=== PATIENT | female | born 1945 | race Caucasian/White ===

== ENCOUNTER 2020-04-11 22:08 | Emergency (ER) | payer MEDICARE, MEDICAID ==
[~2020-04-11] VITALS: Ht 157.5 cm; Wt 57.2 kg
[2020-04-11 22:23] VITALS: BP 146/67
--- NOTE | 2020-04-11 22:28 | Emergency Room Report ---
History of Present Illness General Chief Complaint: Multiple Trauma/Fall Source: Patient Present Illness HPI Disclaimer: Please note that this report is being documented using DRAGON technology. This can lead to erroneous entry secondary to incorrect interpretation by the dictating instrument. HPI: 74-year-old [id number] female presents for evaluation of wrist pain status post fall. Patient was walking down the street and slipped falling forward onto an outstretched right hand approximately 2 hours ago. Noted pain and swelling over the dorsum of the wrist. Denies skin breakdown or laceration. No head injury or loss of conscious or other injury reported. Is able to move all digits and maintains full sensation. Applied ice but did not take any medication prior to arrival. No prior history of injury or trauma to the region. 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 EOMI. Resp: Normal work of breathing Skin: Intact. No abrasions, laceration or rash over the exposed skin MSK: Normal tone and bulk. Moving all extremities. There is moderate edema and palpable deformity over the distal radius and over the dorsum of the wrist. No tenderness over the anatomic snuffbox. Flexion extension of all digits is preserved. Sensation intact over the radial and ulnar aspect of all digits. 2 + radial pulse. Brisk capillary refill. Neuro: Awake and alert. Mentating appropriately Procedures Splinting Splinting : Consent: Verbal Hand-Made Type: plaster Splint: sugar-tong Pre-Proc Neuro Vasc Exam: normal Post-Proc Neuro Vasc Exam: normal Patient Tolerated: Well Complications: None Joint Reduction Joint Reduction : Consent: Emergent Joint Reduction Site: wrist (R) Procedural Sedation: Yes Reduction Attempts: One Pre-Procedure NV Exam: Yes Post-Procedure NV Exam: Yes Post Joint Reduction Film: joint not reduced Patient Tolerated: Well Complications: None Medical Decision Making Diagnostic Impression: Primary Impression: Distal radius fracture, right Qualified Codes: S52.541A - Tomas's fracture of right radius, initial encounter for closed fracture ER Course This 72-year-old female presenting for evaluation of right wrist pain after a fall on outstretched hand 2 hours ago. Concern for fracture, dislocation, contusion, sprain among others. X-rays ordered and are consistent with a anteriorly displaced distal radius fracture, sinus fracture. Hematoma block performed and the patient was given intramuscular and oral pain medications. Fracture was reduced with improved alignment. Placed in sugar tong splint. Neurovascularly intact and started under the procedure. She will require follow -up with orthopedic surgery for possible surgical fixation. She has an HMO insurance plan and will have to follow-up with 1 of their assigned orthopedic surgeons. Copies of her images were included in discharge paperwork. Stable for outpatient follow-up. Instructed to return with new or worsening symptoms. Other X-Ray Diagnostic Results Other X-Ray Diagnostic Results #1: X-Ray ordered: Right wrist # of Views/Limited Vs Complete: 3 View Indication: Pain EP Interpretation: Yes Interpretation: other - Distal radius fracture with anterior displacement consistent with cement fracture. Soft tissue swelling noted Impression: Other - Distal radius fracture and soft tissue swelling Electronically Signed by: Electronically signed by Dr. Tacos Luis Other X-Ray Diagnostic Results #2: X-Ray ordered: Right hand # of Views/Limited Vs Complete: 3 View Indication: Pain EP Interpretation: Yes Interpretation: other - Distal radius fracture, no obvious fracture dislocation in the hand Impression: Other - No obvious fracture or dislocation in the hand, distal radius fracture is seen on wrist x-ray Electronically Signed by: Electronically signed by Dr. Tacos Luis Other X-Ray Diagnostic Results #3: X-Ray ordered: Right wrist post reduction # of Views/Limited Vs Complete: 3 View Indication: Pain EP Interpretation: Yes Interpretation: other - Distal radius fracture with improved alignment Impression: Other - Distal radius fracture with improved alignment Electronically Signed by: Electronically signed by Dr. Tacos Luis Last Vital Signs Date Time Temp Pulse Resp B/P (MAP) Pulse Ox O2 Delivery O2 Flow Rate FiO2 04/11/20 22:23 80 20 Room Air 04/11/20 22:23 146/67 98 04/11/20 22:14 98.4 Disposition: HOME, SELF-CARE Condition: Stable Scripts Hydrocodone Bit/Acetaminophen 5-325* (NORCO 5-325 TABLET*) 1 Each Tablet 1 TAB ORAL Q6H PRN for FOR PAIN, #12 TAB 0 Refills Prov: Tacos Luis MD 04/11/20 Ibuprofen* (MOTRIN*) 600 Mg Tablet 600 MG ORAL Q6H PRN for For Pain, #30 TAB 0 Refills Prov: Tacos Luis MD 04/11/20 Tacos Luis MD Apr 11, 2020 22:28
[2020-04-11] MEDS ORDERED: HYDROcodone/Acetamin 7.5/325 tab ORAL ONE (22:30)
[2020-04-11] MEDS ORDERED: Morphine Sulfate 2mg/ml Inj(IV/IM USE ONLY) IM ONE (23:15)
[2020-04-11] MEDS ORDERED: IBUPROFEN600 M1 ORAL (23:16)
[2020-04-11] MEDS ORDERED: NORCO 5-325 TA1 EAC1 ORAL (23:16)
[2020-04-12 00:20] VITALS: BP 135/71
--- NOTE | 2020-04-12 11:38 | Diagnostic Imaging Report ---
EXAM: X-RAY XRAY Wrist Complete R CLINICAL HISTORY: Wrist pain and fracture. COMPARISON: 04/11/2020 FINDINGS: Total of 4 views of the right wrist were obtained. Images now obtained in cast. Distal radial fracture again noted not significantly changed. Alignment appears anatomic. Surrounding soft tissue is normal. IMPRESSION: DISTAL RADIAL FRACTURE NOW IN CAST. ANATOMIC ALIGNMENT.
--- NOTE | 2020-04-12 11:40 | Diagnostic Imaging Report ---
EXAM: X-RAY XRAY Wrist Complete R CLINICAL HISTORY: Trauma with hand and wrist pain. COMPARISON: None FINDINGS: Total of 3 views of the right wrist were obtained. There is a mildly impacted fracture of the distal radius. The other bony appendages appear intact. Carpal alignment remains anatomic. There is slight ulnar plus variance. Soft tissue swelling noted. IMPRESSION: DISTAL RADIAL FRACTURE WITH MILD IMPACTION.
--- NOTE | 2020-04-12 11:40 | Diagnostic Imaging Report ---
EXAM: X-RAY XRAY Hand Complete R CLINICAL HISTORY: Trauma with hand and wrist pain. COMPARISON: None FINDINGS: Total of 3 views of the right hand were obtained. There is a mildly impacted fracture of the distal radius. Bony appendages of the hand otherwise appear unremarkable. Carpal alignment remains anatomic. There is slight ulnar plus variance. Soft tissue swelling noted. IMPRESSION: DISTAL RADIAL FRACTURE WITH MILD IMPACTION.
== END 2020-04-12 00:20 | disposition home or self-care (01) ==
LOC: EMR 22:30
DX: S52.541A Smith's fracture of right radius, initial encounter for closed fracture (principal); W01.0XXA Fall on same level from slipping, tripping and stumbling without subsequent striking against object, initial encounter; Y93.01 Activity, walking, marching and hiking; Y92.480 Sidewalk as the place of occurrence of the external cause
CPT/HCPCS: 25605; 73110; 73130; 96372; 99283; J2270